=== PATIENT | female | born 1965 | race Caucasian/White ===

== ENCOUNTER 2017-04-01 14:46 | Inpatient (IN) | payer MEDICAID, OTHER ==
[~2017-04-01] VITALS: Ht 152.4 cm; Wt 80.0 kg
[2017-04-01] MEDS ORDERED: SOD CHLORIDE 0.9% 1,000 ML IV STA (17:31)
--- NOTE | 2017-04-01 17:55 | ERA ---
ER Documentation Chief Complaint Date/Time DATE: 04/01/17 TIME: 17:53 Chief Complaint sent by pmd for hemoglobin 5.1 03/14/17 HPI This is a 52-year-old Mongolian-speaking female history of anemia who presents for anemia. gameplay programmer was used. The patient is a very poor historian. She describes several weeks of generalized malaise, total body pain. She states that she has irregular and heavy periods. Has never had a transfusion in the past. She does note some mild shortness of breath and chest discomfort with exertion. She was noted to have a low-grade fever at triage but denies any cough shortness of breath or dysuria urgency or frequency. ROS All systems reviewed and are negative except as per history of present illness. Medications Home Meds Reported Medications Loratadine* (Loratadine*) 10 Mg Tablet, 10 MG PO DAILY, #30 TAB 04/01/17 Omeprazole* (Omeprazole*) 40 Mg Capsule.dr, 40 MG PO BID, #30 CAP 04/01/17 Glipizide* (Glipizide*) 5 Mg Tablet, 5 MG PO AC BREAKFAST DINNER, TAB 04/01/17 Allergies Allergies: Coded Allergies: No Known Allergy (Unverified , 04/01/17) PMhx/Soc Medical and Surgical Hx: pt denies Medical Hx, pt denies Surgical Hx Hx Alcohol Use: No Hx Substance Use: No Hx Tobacco Use: No Smoking Status: Never smoker FmHx Family History: No diabetes Physical Exam Vitals Vital Signs Date Time Temp Pulse Resp B/P Pulse Ox O2 Delivery O2 Flow Rate FiO2 04/01/17 18:49 99.1 85 18 145/68 99 Room Air 04/01/17 18:10 82 16 151/66 100 Room Air 04/01/17 14:50 100.1 107 18 158/69 98 Physical Exam General: Well developed, well nourished, no acute distress, pallor Head: Normocephalic, atraumatic. Eyes: Pupils equally reactive, EOM intact ENT: Moist mucous membranes Neck: Supple, no lymphadenopathy Respiratory: Lungs clear bilaterally, no distress Cardiovascular: RRR, no murmurs, rubs, or gallops Abdominal: Soft, non-tender, non-distended, no peritoneal signs : Deferred MSK: No edema, no unilateral swelling, 5/5 strength Neurologic: Alert and oriented, moving all extremities, normal speech, no focal weakness, no cerebellar signs Skin: No rash Psych: Normal mood Result Diagram: 04/01/17 1800 04/01/17 1800 Results 24 hrs Laboratory Tests Test 04/01/17 18:00 White Blood Count 9.010^3/ul Red Blood Count 3.8310^6/ul Hemoglobin 5.8g/dl Hematocrit 23.0% Mean Corpuscular Volume 60.1fl Mean Corpuscular Hemoglobin 15.1pg Mean Corpuscular Hemoglobin Concent 25.2g/dl Red Cell Distribution Width 22.4% Platelet Count 24177^3/UL Mean Platelet Volume 9.8fl Neutrophils % % Segmented Neutrophils % (Manual) 74% Lymphocytes % % Lymphocytes % (Manual) 22% Monocytes % % Monocytes % (Manual) 4% Eosinophils % % Basophils % % Nucleated Red Blood Cells % 0.2/100WBC Neutrophils # 10^3/ul Absolute Lymphocytes (Manual) 1.910^3/ul Lymphocytes # 10^3/ul Monocytes # 10^3/ul Absolute Monocytes (Manual) 0.310^3/ul Eosinophils # 10^3/ul Basophils # 10^3/ul Nucleated Red Blood Cells # 10^3/ul Pathologist Review (Hematology) YES Smudge Cells % 7% Platelet Morphology Comment @See below Polychromasia 1+ Hypochromasia 3+ Poikilocytosis 3+ Anisocytosis 3+ Microcytosis 3+ Ovalocytes 1+ Prothrombin Time 13.5Sec Prothrombin Time Ratio 1.1 INR International Normalized Ratio 1.03 Activated Partial Thromboplast Time 25.7Sec Sodium Level 143mmol/L Potassium Level 3.7mmol/L Chloride Level 103mmol/L Carbon Dioxide Level 24mmol/L Anion Gap 20 Blood Urea Nitrogen 9mg/dl Creatinine 0.61mg/dl Glucose Level 139mg/dl Lactic Acid Level 1.7mmol/L Calcium Level 9.3mg/dl Total Bilirubin 0.2mg/dl Direct Bilirubin 0.00mg/dl Indirect Bilirubin 0.2mg/dl Aspartate Amino Transf (AST/SGOT) 40IU/L Alanine Aminotransferase (ALT/SGPT) 39IU/L Alkaline Phosphatase 103IU/L Troponin I < 0.012ng/ml Total Protein 8.4g/dl Albumin 4.7g/dl Globulin 3.70g/dl Albumin/Globulin Ratio 1.27 Current Medications Medications (Trade) Dose Ordered Sig/Francie Route PRN Reason Start Time Stop Time Status Last Admin Dose Admin Acetaminophen 650 mg 650 mg ONCE ONCE PO 04/01/17 18:00 04/01/17 18:01 DC 04/01/17 18:08 Sodium Chloride 1,000 ml @ 1,000 mls/hr Q1H STAT IV 04/01/17 17:31 04/01/17 18:30 DC 04/01/17 18:06 Sodium Chloride (NS) 250 ml @ 0 mls/hr Q0M ONCE IV 04/01/17 18:46 04/01/17 18:48 DC Ondansetron HCl (Zofran Inj) 4 mg BRIDGE ORDER PRN IV NAUSEA AND/OR VOMITING 04/01/17 19:00 04/02/17 18:59 Acetaminophen (Tylenol Tab) 650 mg ER BRIDGE PRN PO MILD PAIN/FEVER 04/01/17 19:00 04/02/17 18:59 Procedures/MDM EKG, MONITORS, & DIAGNOSTIC IMAGING: EKG: I reviewed and interpreted a 12-lead EKG. Rhythm: Normal sinus rhythm Ectopy: None Intervals: No abnormalities ST segments: No elevations or depressions T waves: No contiguous inversions Chest x-ray: I reviewed and interpreted a 1 view of the chest Mediastinum: No enlargement Cardiac silhouette: No cardiomegaly Airspace: Clear lung perea bilaterally without evidence of pneumothorax Bones: No evidence of fracture LAB INTERPRETATION: Negative troponin, anemia, no leukocytosis MEDICAL DECISION MAKING: The patient presents for evaluation of anemia. She has signs and symptoms consistent with symptomatic anemia. She has a low-grade fever that is nonspecific. Low clinical concern for ITP as the patient is well-appearing. Sepsis screening will be initiated but again the patient is well-appearing this may be nonspecific. The patient may benefit from a transfusion. I discussed with the patient and/or family the risks, benefits, alternatives of blood transfusion. This includes allergic reaction and infections including HIV and hepatitis. The patient and/or family were able to verbalize these risks , stated understanding. A document has been signed and placed in the chart. ER COURSE: Infectious workup has been unrevealing. The patient's temperature has normalized. Consider using error versus nonspecific low-grade fever. The patient has anemia that would benefit from transfusion. The patient was given 2 units of packed red blood cells and will be admitted for further management. I kept the patient and/or family informed of laboratory and diagnostic imaging results throughout the emergency room course. DISPOSITION PLAN: [facility] admission for symptomatic anemia CONSULTATION: Accepting care team and consultations: I discussed the current laboratory data, diagnostic imaging and emergency care provided. Admitting team: Dr. Be Admitting team indication: Insurance directed Departure Diagnosis: Primary Impression: Symptomatic anemia Additional Impression: Menorrhagia Qualified Code: N92.1 - Menorrhagia with irregular cycle Condition: Stable TAMARA GLEASON MD Apr 01, 2017 17:55
[2017-04-01] MEDS ORDERED: ACETAMINOPHEN 325 MG TAB PO ONE (18:00)
[2017-04-01 18:19] LABS: ABNORMAL IP MESSAGE 1; MEAN CORPUSCULAR HEMOGLOBIN 15.1 pg (29.0-33.0); MEAN CORPUSCULAR HGB CONC 25.2 g/dl (32.0-37.0); MEAN CORPUSCULAR VOLUME 60.1 fl (82.0-101.0); MEAN PLATELET VOLUME 9.8 fl (7.4-10.4); NUCLEATED RED BLOOD CELLS% 0.2 /100WBC (0.0-0.0); PLATELET COUNT 339 10^3/UL (140-415); RED BLOOD COUNT 3.83 10^6/ul (4.20-5.40); RED CELL DISTRIBUTION WIDTH 22.4 % (11.5-14.5)
[2017-04-01] MEDS ORDERED: OMEP40CA6 PO (18:27)
[2017-04-01] MEDS ORDERED: GLIP5TAB13 PO (18:27)
[2017-04-01] MEDS ORDERED: LORA10TA3 PO (18:28)
[2017-04-01 18:38] LABS: POSITIVE DIFF @See below
[2017-04-01 18:42] LABS: HEMOGLOBIN 5.8 g/dl (12.0-16.0)
[2017-04-01 18:44] LABS: INR 1.03; PROTIME 13.5 Sec (12.2-14.2); PT RATIO 1.1
[2017-04-01 18:45] LABS: PARTIAL THROMBOPLASTIN TIME 25.7 Sec (25.0-35.0)
[2017-04-01] MEDS ORDERED: SOD CHLORIDE 0.9% 250 ML IV ONE (18:46)
[2017-04-01 18:48] LABS: ALANINE AMINOTRANSFERASE 39 IU/L (13-69); ALBUMIN 4.7 g/dl (3.3-4.9); ALBUMIN/GLOBULIN RATIO 1.27; ALKALINE PHOSPHATASE 103 IU/L (42-121); ANION GAP 20 (8-16); ASPARTATE AMINO TRANSFERASE 40 IU/L (15-46); BILIRUBIN,INDIRECT 0.2 mg/dl (0-1.1); BILIRUBIN,TOTAL 0.2 mg/dl (0.2-1.3); BLOOD UREA NITROGEN 9 mg/dl (7-20); CALCIUM 9.3 mg/dl (8.4-10.2); CARBON DIOXIDE 24 mmol/L (21-31); CHLORIDE 103 mmol/L (97-110); CREATININE 0.61 mg/dl (0.44-1.00); GLUCOSE 139 mg/dl (70-220); POTASSIUM 3.7 mmol/L (3.5-5.1); SODIUM 143 mmol/L (135-144); TOTAL PROTEIN 8.4 g/dl (6.1-8.1)
[2017-04-01] MEDS ORDERED: ACETAMINOPHEN 325 MG TAB PO PRN ×2 (19:00→21:00)
[2017-04-01] MEDS ORDERED: ONDANSETRON 4 MG INJ IV PRN ×2 (19:00→21:00)
[2017-04-01 19:01] LABS: TROPONIN-I < 0.012 ng/ml (0.00-0.12)
--- NOTE | 2017-04-01 19:04 | RADRPT ---
PROCEDURE: XR Chest. CLINICAL INDICATION: Shortness of breath. TECHNIQUE: Single frontal chest x-ray. COMPARISON: None available FINDINGS: The cardiac silhouette is enlarged. There is mild congestion and interstitial prominence diffusely. No focal consolidation is seen. There is no evidence of effusion or pneumothorax. Osseous structur es are grossly intact. IMPRESSION: Prominent cardiac silhouette with mild congestion and diffusely prominent interstitial lung markings which may represent mild interstitial edema or atypical infection. RPTAT: JJ .Zhen Bravo MD, MD Date Time Electronically viewed and signed by .Zhen Bravo MD, MD on 04/01/2017 19:03 .A/
[2017-04-01 19:05] LABS: ANISOCYTOSIS 3+ (0-0); HYPOCHROMASIA 3+ (0-0); MICROCYTOSIS 3+ (0-0); MONOCYTES % (M) 4 % (0-11); OVALOCYTES 1+ (0-0); POIKILOCYTOSIS 3+ (0-0); POLYCHROMASIA 1+ (0-0)
[2017-04-01 19:09] LABS: PATH REVIEW? YES
--- NOTE | 2017-04-01 20:53 | HP ---
Date/Time of Note Date/Time of Note DATE: 04/01/17 TIME: 20:53 Assessment/Plan VTE Prophylaxis VTE Prophylaxis Intervention: SCD's Assessment/Plan Chief Complaint/Hosp Course This is a 52-year-old [facility]: #1 symptomatic anemia: Microcytic anemia, hemoglobin on presentation was 5.8. With an MCV of 60. Patient does have a previous history of possible ulcer/ gastritis. At the current time will order fecal occult blood to assess for any GI tract bleeding. As patient does report she has heavy periods will also order a vaginal ultrasound. Will proceed with further imaging if indicated. She was ordered 2 units of PRBCs in the ED. Will repeat a CBC after her second unit is finished. Consult OB/GI as indicated via study findings. Will check iron studies. #2 diabetes mellitus: We will check a hemoglobin A1c. Will put patient on insulin sliding scale, will need to verify home medications the patient #3 questionable history of ulcer/gastritis: At the current time will check a fecal occult blood for any GI tract bleeding. Consult GI if clinically indicated. #4 Abnormal chest x-ray: Appears to be an enlarged cardiac silhouette and possible interstitial markings. The current time patient does not appear to be in any respiratory distress or short of breath. Will check a BNP. Patient does not have an elevated white blood cell count or any fevers or any cough or other respiratory symptoms to suggest any sort of underlying infection at this time. We will continue to monitor. #5 DVT and GI prophylaxis: SCDs, Protonix Further treatment strategy will be implemented as per the clinical course Problems: HPI/ROS Admit Date/Time Admit Date/Time Hx of Present Illness Chief complaint: Low hemoglobin This is a 52-year-old Turkish speaking female who comes in at the direction of her primary doctor for a low hemoglobin. As per the ED documentation and during my examination there does appear to be some difference in the story. To the ED physician she describes several weeks of generalized malaise, total body pain. She states that she has irregular and heavy periods. Has never had a transfusion in the past. She does note some mild shortness of breath and chest discomfort with exertion. She was noted to have a low-grade fever at triage but denies any cough shortness of breath or dysuria urgency or frequency. Upon my examination the patient stated that she was told by her primary care doctor that her hemoglobin was low she was sent in. She denies any weakness or any body pains or any chest pain or any shortness of breath. She states that she has heavy periods but they are regular. She denies any painful cramping or severe abdominal pain with her periods. She reports that her last period was March 11. Allergies: NKDA Medications: See BRIDGETT SASHA Const: As per HPI Eyes : No pain discharge or redness or change in visual acuity ENT: No pain, sore throat, congestion, congestion, dysphagia or discharge Respiratory: No shortness of breath, cough, sputum, wheezing, or pleuritic pain Cardiovascular: No chest pain, palpitation, PND, or edema GI : no change in appetite, abdominal pain, nausea, vomiting, diarrhea, constipation, or change in the color his stool Genitourinary: As per HPI Musculoskeletal: No joint pain, back pain, neck pain, restricted range of motion in neck or joints Skin: No rash, bruising or hives Neuro: No headache, dizziness, syncope, seizure, focal weakness Endocrine: No polyuria, polydipsia, temperature intolerance Psych: No hallucination, depression, anxiety or suicidal ideation PMH/Family/Social Past Medical History Diabetes mellitus, ulcer/gastritis ? Past Surgical History Endoscopy 1 year ago which found ulcers versus gastritis? Family History Significant Family History: hypertension (Mom) Social History Alcohol Use: none Smoking Status: Never smoker Drug Use: none Exam/Review of Systems Vital Signs Vitals Vital Signs Date Time Temp Pulse Resp B/P Pulse Ox O2 Delivery O2 Flow Rate FiO2 04/01/17 18:49 99.1 85 18 145/68 99 Room Air Exam Exam General: Patient is well-developed well-nourished The patient is alert oriented -3 lying comfortably in bed. HEENT: Atraumatic, normocephalic. The pupils are equal, round and reactive. Extraocular motor are intact Neck: Supple with full range of motion. No rigidity or meningismus Chest: Nontender Lungs: Clear to auscultation bilaterally no crackles rales or wheezing Heart: Normal S1-S2, Regular rhythm and rate. No murmur, S3, or S4 Abdomen: Soft , nontender, nondistended , bowel sounds are present. No guarding no rebound tenderness , No masses or organomegaly. No costovertebral temporal angle mass Extremities: Normal to inspection, no edema no cyanosis Neurologic: Normal mental status, speech normal, cranial nerves II through XII are intact, motor and sensory are intact, no focal weakness Additional Comments PROCEDURE: XR Chest. CLINICAL INDICATION: Shortness of breath. TECHNIQUE: Single frontal chest x-ray. COMPARISON: None available FINDINGS: The cardiac silhouette is enlarged. There is mild congestion and interstitial prominence diffusely. No focal consolidation is seen. There is no evidence of effusion or pneumothorax. Osseous structures are grossly intact. IMPRESSION: Prominent cardiac silhouette with mild congestion and diffusely prominent interstitial lung markings which may represent mild interstitial edema or atypical infection. RPTAT: JJ .Zhen Bravo MD, MD Date Time Electronically viewed and signed by .Zhen Bravo MD, MD on 04/01/2017 19:03 EKG Rhythm: Normal sinus rhythm Ectopy: None Intervals: No abnormalities ST segments: No elevations or depressions T waves: No contiguous inversions As per ED physician documentation Labs Result Diagram: 04/01/17 1800 04/01/17 1800 BRITTNEY HINDS Apr 01, 2017 20:53
[2017-04-01 21:00] VITALS: BP 154/68; RESP 19
[2017-04-01] MEDS ORDERED: NACL 0.9% 3 ML SYG IV SCH (21:00)
[2017-04-01] MEDS ORDERED: HYDROCODONE/APAP (5/325) TAB PO PRN (21:00)
[2017-04-01 21:30] VITALS: PULSE 80; TEMP 98.5
--- NOTE | 2017-04-01 22:37 | RADRPT ---
PROCEDURE: US Non-OB Pelvis. CLINICAL INDICATION: Menorrhagia. TECHNIQUE: Multiple sonographic images of the pelvis were obtained utilizing a transabdominal tech nique. The images were reviewed on a PACS workstation. COMPARISON: None. FINDINGS: The uterus is visualized and measures 9.4 x 5.7 x 9.7 cm. There is a submucosal fibroid measuring 4. 1 cm. Two pedunculated fibroids measure 9.2 and 4.7 cm. The endometrial echo complex is normal and measures 14 mm. The right ovary measures 8.4 x 5.8 x 6.1 cm. There is possible 6.1 cm right ovarian cyst with echoge antonio contents. An additional 2.5 cm echogenic structure adjacent to the right ovary demonstrates pos terior acoustic enhancement. The left ovary measures 3.1 x 1.8 x 2.0 cm. Blood flow is demonstrated to both ovaries. No adnexal masses are noted. There is no evidence of free fluid. IMPRESSION: 1. Three submucosal and pedunculated uterine fibroids measuring up to 9.2 cm. 2. Enlarged right ovary containing a possible 6.1 cm cyst with echogenic contents. This is nonspec ific but might represent a hemorrhagic cyst or endometrioma. A 2.5 cm echogenic structure adjacent t o the right ovary demonstrate posterior acoustic enhancement, suggestive of an additional hemorrhagi c cyst or endometrioma. A repeat ultrasound should be obtained in 6-12 weeks to reassess these findi ngs. Alternatively, these findings could be further evaluated with contrast-enhanced MRI. RPTAT: HTAR .Dakotah Mendez MD, Date Time Electronically viewed and signed by .Dakotah Mendez MD, MD on 04/01/2017 22:37 .R/
[2017-04-01 23:00] VITALS: Ht 152.4 cm; Wt 80.0 kg
[2017-04-02 02:00] VITALS: BP 117/55; RESP 18
[2017-04-02] MEDS ORDERED: DEXTROSE 50% 50 ML SYRINGE IV PRN ×2 (03:00)
[2017-04-02] MEDS ORDERED: GLUCOSE GEL 15 GRAM TUBE BUCCAL PRN (03:00)
[2017-04-02] MEDS ORDERED: GLUCOSE GEL 15 GRAM TUBE PO PRN ×2 (03:00)
[2017-04-02] MEDS ORDERED: GLUCAGON 1 MG INJ IM PRN (03:00)
[2017-04-02] MEDS ORDERED: PANTOPRAZOLE 40 MG INJ IV SCH (06:00)
[2017-04-02 06:26] LABS: IRON 24 ug/dl (35-150)
[2017-04-02 06:36] LABS: TOTAL IRON BINDING CAPACITY 384 ug/dl (241-421)
[2017-04-02 06:41] LABS: ADD UMIC YES; UR ASCORBIC ACID NEGATIVE (NEGATIVE); UR BACTERIA FEW /HPF (NONE SEEN); UR BILIRUBIN (Dip) NEGATIVE (NEGATIVE); UR BLOOD (Dip) 1+ mg/dL (NEGATIVE); UR CLARITY CLEAR (CLEAR); UR COLOR STRAW (YELLOW); UR GLUCOSE (Dip) NEGATIVE (NEGATIVE); UR KETONES (Dip) NEGATIVE (NEGATIVE); UR LEUKOCYTE ESTERASE (Dip) NEGATIVE Leu/ul (NEGATIVE); UR NITRITE (Dip) NEGATIVE (NEGATIVE); UR RBC 0 /HPF (0-5); UR SPECIFIC GRAVITY (Dip) 1.015 (1.003-1.030); UR SQUAMOUS EPITHELIAL CELL FEW /HPF (FEW); UR TOTAL PROTEIN (Dip) NEGATIVE (NEGATIVE); UR UROBILINOGEN (Dip) NEGATIVE (NEGATIVE)
[2017-04-02 06:56] LABS: CHOL/HDL RATIO 5.7 RATIO
[2017-04-02 07:27] LABS: THYROID STIMULATING HORMONE 6.12 MIU/L (0.465-4.680)
[2017-04-02 07:30] VITALS: BP 130/62; RESP 18
[2017-04-02 07:35] LABS: ABNORMAL IP MESSAGE 1; BASOPHILS % 0.5 % (0.0-2.0); EOSINOPHILS # 0.2 10^3/ul (0.0-0.5); EOSINOPHILS % 2.3 % (0.0-7.0); HEMATOCRIT 30.1 % (37.0-47.0); HEMOGLOBIN 8.5 g/dl (12.0-16.0); MEAN CORPUSCULAR HEMOGLOBIN 19.1 pg (29.0-33.0); MEAN CORPUSCULAR HGB CONC 28.2 g/dl (32.0-37.0); MEAN CORPUSCULAR VOLUME 67.6 fl (82.0-101.0); MEAN PLATELET VOLUME 9.3 fl (7.4-10.4); MONOCYTE # 0.7 10^3/ul (0.3-0.9); MONOCYTES % 8.9 % (0.0-11.0); NEUTROPHIL # 4.4 10^3/ul (1.6-7.5); NEUTROPHILS % 60.9 % (39.0-77.0); PLATELET COUNT 264 10^3/UL (140-415); RED BLOOD COUNT 4.45 10^6/ul (4.20-5.40); RED CELL DISTRIBUTION WIDTH 28.8 % (11.5-14.5); WHITE BLOOD COUNT 7.3 10^3/ul (4.8-10.8)
[2017-04-02 07:37] LABS: POSITIVE DIFF @See below
[2017-04-02] MEDS: INSULIN ASPART [NOVOLOG] 3 ML PEN SC SCH ×2 (08:00→12:00)
[2017-04-02] MEDS ORDERED: LORATADINE 10 MG TAB PO SCH (09:00)
[2017-04-02 14:00] VITALS: BP 143/84; RESP 20
--- NOTE | 2017-04-02 14:27 | PN ---
Date/Time of Note Date/Time of Note DATE: 04/02/17 TIME: 14:23 Assessment/Plan VTE Prophylaxis VTE Prophylaxis Intervention: SCD's Lines/Catheters IV [facility] [facility] Urinary Cath still in place: No Assessment/Plan Assessment/Plan 1. Symptomatic iron deficiency s/p two units PRBCs, oral iron supplement follow up with pelvic ultrasound Exam/Review of Systems Vital Signs Vitals Vital Signs Date Time Temp Pulse Resp B/P Pulse Ox O2 Delivery O2 Flow Rate FiO2 04/02/17 07:30 98.0 76 18 130/62 99 04/01/17 21:30 Room Air Intake and Output 04/01/17 04/01/17 04/02/17 15:00 23:00 07:00 Intake Total 600 ml 1070 ml Balance 600 ml 1070 ml Results Result Diagram: 04/02/17 0715 04/01/17 1800 Results 24 hrs Laboratory Tests Test 04/01/17 18:00 04/01/17 20:15 04/01/17 21:00 04/01/17 22:00 White Blood Count 9.0 Red Blood Count 3.83 L Hemoglobin 5.8 *L Hematocrit 23.0 L Mean Corpuscular Volume 60.1 L Mean Corpuscular Hemoglobin 15.1 L Mean Corpuscular Hemoglobin Concent 25.2 L Red Cell Distribution Width 22.4 H Platelet Count 339 Mean Platelet Volume 9.8 Neutrophils % Segmented Neutrophils % (Manual) 74 Lymphocytes % Lymphocytes % (Manual) 22 Monocytes % Monocytes % (Manual) 4 Eosinophils % Basophils % Nucleated Red Blood Cells % 0.2 H Neutrophils # Absolute Lymphocytes (Manual) 1.9 Lymphocytes # Monocytes # Absolute Monocytes (Manual) 0.3 Eosinophils # Basophils # Nucleated Red Blood Cells # Pathologist Review (Hematology) YES Smudge Cells % 7 H Platelet Morphology Comment @See below Polychromasia 1+ Hypochromasia 3+ Poikilocytosis 3+ Anisocytosis 3+ Microcytosis 3+ Ovalocytes 1+ Prothrombin Time 13.5 Prothrombin Time Ratio 1.1 INR International Normalized Ratio 1.03 Activated Partial Thromboplast Time 25.7 Sodium Level 143 Potassium Level 3.7 Chloride Level 103 Carbon Dioxide Level 24 Anion Gap 20 H Blood Urea Nitrogen 9 Creatinine 0.61 Glucose Level 139 Lactic Acid Level 1.7 1.8 1.0 Calcium Level 9.3 Total Bilirubin 0.2 Direct Bilirubin 0.00 Indirect Bilirubin 0.2 Aspartate Amino Transf (AST/SGOT) 40 Alanine Aminotransferase (ALT/SGPT) 39 Alkaline Phosphatase 103 Troponin I < 0.012 Total Protein 8.4 H Albumin 4.7 Globulin 3.70 H Albumin/Globulin Ratio 1.27 Beta HCG, Quantitative < 2.4 Test 04/01/17 23:23 04/02/17 05:33 04/02/17 05:35 04/02/17 06:00 Bedside Glucose 132 Hemoglobin A1c 5.4 B-Type Natriuretic Peptide 141 H Triglycerides Level 122 Cholesterol Level 121 LDL Cholesterol, Calculated 76 HDL Cholesterol 21 L Cholesterol/HDL Ratio 5.7 Thyroid Stimulating Hormone (TSH) 6.120 H Iron Level 24 L Total Iron Binding Capacity 384 Percent Iron Saturation 6 L Urine Color STRAW Urine Clarity CLEAR Urine pH 7.0 Urine Specific [place] 1.015 Urine Ketones NEGATIVE Urine Nitrite NEGATIVE Urine Bilirubin NEGATIVE Urine Urobilinogen NEGATIVE Urine Leukocyte Esterase NEGATIVE Urine Microscopic RBC 0 Urine Microscopic WBC 0 Urine Squamous Epithelial Cells FEW Urine Bacteria FEW A Urine Hemoglobin 1+ H Urine Glucose NEGATIVE Urine Total Protein NEGATIVE Test 04/02/17 06:30 04/02/17 06:56 04/02/17 07:15 04/02/17 08:04 Stool Occult Blood NEGATIVE Lab Scanned Report BLOOD TRANSFUSION White Blood Count 7.3 Red Blood Count 4.45 Hemoglobin 8.5 #L Hematocrit 30.1 #L Mean Corpuscular Volume 67.6 L Mean Corpuscular Hemoglobin 19.1 #L Mean Corpuscular Hemoglobin Concent 28.2 L Red Cell Distribution Width 28.8 #H Platelet Count 264 # Mean Platelet Volume 9.3 Neutrophils % 60.9 Lymphocytes % 27.0 Monocytes % 8.9 Eosinophils % 2.3 Basophils % 0.5 Nucleated Red Blood Cells % 0.0 Neutrophils # 4.4 Lymphocytes # 2.0 Monocytes # 0.7 Eosinophils # 0.2 Basophils # 0.0 Nucleated Red Blood Cells # 0.0 Bedside Glucose 116 Test 04/02/17 11:39 Bedside Glucose 126 Medications Medications Current Medications Ondansetron HCl (Zofran Inj) 4 mg Q6H PRN IV NAUSEA AND/OR VOMITING; Start at 21:00 Acetaminophen (Tylenol Tab) 650 mg Q6H PRN PO PAIN LEVEL 1-3 OR FEVER; Start at 21:00 Acetaminophen/ Hydrocodone Bitart ([place] (5/325)) 1 tab Q6H PRN PO MODERATE PAIN LEVEL 4-6; Start 04/01/17 at 21:00 Pantoprazole (Protonix Iv) 40 mg DAILY@06 IV Last administered on 04/02/17 06: 37; Admin Dose 40 MG; Start 04/02/17 at 06:00 Loratadine (Claritin) 10 mg DAILY PO Last administered on 04/02/17 11:41; Admin Dose 10 MG; Start 04/02/17 at 09:00 Diagnostic Test (Pha) (Accu-Chek) 1 ea 02 XX ; Start 04/03/17 at 02:00 Miscellaneous Information 1 ea NOTE XX ; Start 04/02/17 at 03:00 Glucose (Glutose) 15 gm Q15M PRN PO DECREASED GLUCOSE; Start 04/02/17 at 03:00 Glucose (Glutose) 22.5 gm Q15M PRN PO DECREASED GLUCOSE; Start 04/02/17 at 03: 00 Dextrose (D50w Syringe) 25 ml Q15M PRN IV DECREASED GLUCOSE; Start 04/02/17 at 03:00 Dextrose (D50w Syringe) 50 ml Q15M PRN IV DECREASED GLUCOSE; Start 04/02/17 at 03:00 Glucagon (Glucagen) 1 mg Q15M PRN IM DECREASED GLUCOSE; Start 04/02/17 at 03:00 Glucose (Glutose) 15 gm Q15M PRN BUCCAL DECREASED GLUCOSE; Start 04/02/17 at 03 :00 NAPOLEON MARTEL MD Apr 02, 2017 14:27
--- NOTE | 2017-04-02 15:33 | RADRPT ---
PROCEDURE: MR Pelvis with and without contrast. CLINICAL INDICATION: Abnormal pelvic ultrasound. TECHNIQUE: MRI of the pelvis was performed with and without contrast on a 3T GE scanner using the following sequences: Coronal and axial T2 forced recovery fast spin echo with and without fat satur ation, axial DWI, and pre- and post-contrast multi-planar LAVA sequences following the intravenous a dministration of 10 cc of Magnevist. COMPARISON: Ultrasound, 04/01/2017. FINDINGS: There is enlarged leiomyomatous uterus measuring approximately 17.7 cm in craniocaudal length. Ther e are multiple uterine fibroids. Largest fibroid is a subserosal fibroid arising from the uterine f undus measuring approximately 8.2 x 9.1 x 8.1 cm (AP x TR x CC). There is also an additional right subserosal fundal fibroid measuring approximately 6.1 x 5.3 cm. There are at least 2 submucosal fib roids identified, the larger measuring up to 3.5 cm. There is marked distortion of the endometrial cavity by the overlying fibroids. There is no intracavitary or cervical fibroid. Multiple Nabothia n cysts are noted within the cervix. There are simple appearing bilateral ovarian cysts, largest on the right measuring up to 3.7 cm. La rgest on the left measuring up to 3.8 cm. There is small free fluid in the pelvis, which may be physiologic. IMPRESSION: 1. Enlarged leiomyomatous uterus with multiple uterine fibroids, as described. 2. Simple appearing cysts in the bilateral adnexa. RPTAT: EE .Emil Matthew MD, MD Date Time Electronically viewed and signed by .Emil Matthew MD, MD on 04/02/2017 15:38 .C/
[2017-04-02] MEDS ORDERED: FER325 PO (16:29)
--- NOTE | 2017-04-02 16:44 | DS ---
Date/Time of Note Date/Time of Note DATE: 04/02/17 TIME: 16:33 Discharge Summary Admission/Discharge Info Admit Date/Time Apr 01, 2017 at 18:53 Discharge Date/Time Discharge Diagnosis 1. Iron deficiency anemia, consider abnormal vaginal bleeding, s/p two units PRBC, follow up with PCP/[facility] outpatient Patient Condition: Stable Hospital Course 52 years old female with no significant PMH was sent to hospital for severe anemia with dyspnea on exertion. H/H were 5.8/23 with MCV 60.1. Iron 24 with Fe saturation 5%. Patient got two units PRBC transfusion, that improves her H/H to 8.5/30.1. For etiology of iron deficiency anemia work ups, Stool occult blood is negative. Patient states she still has regular menses once a month, 3-5 days, sometime heavy, sometime light. The abnormal vaginal bleeding is considered. Patient had MRI of pelvis that revealed Enlarged leiomyomatous uterus with multiple uterine fibroids. Patient will be discharged with oral iron supplement and have her follow up with PCP to refer her to an [facility] outpatient. Patient denies abdominal pain, no black or dark stool. Stool OB is negative. PROCEDURE: MR Pelvis with and without contrast. CLINICAL INDICATION: Abnormal pelvic ultrasound. TECHNIQUE: MRI of the pelvis was performed with and without contrast on a 3T GE scanner using the following sequences: Coronal and axial T2 forced recovery fast spin echo with and without fat saturation, axial DWI, and pre- and post- contrast multi-planar LAVA sequences following the intravenous administration of 10 cc of Magnevist. COMPARISON: Ultrasound, 04/01/2017. FINDINGS: There is enlarged leiomyomatous uterus measuring approximately 17.7 cm in craniocaudal length. There are multiple uterine fibroids. Largest fibroid is a subserosal fibroid arising from the uterine fundus measuring approximately 8.2 x 9.1 x 8.1 cm (AP x TR x CC). There is also an additional right subserosal fundal fibroid measuring approximately 6.1 x 5.3 cm. There are at least 2 submucosal fibroids identified, the larger measuring up to 3.5 cm. There is marked distortion of the endometrial cavity by the overlying fibroids. There is no intracavitary or cervical fibroid. Multiple Nabothian cysts are noted within the cervix. There are simple appearing bilateral ovarian cysts, largest on the right measuring up to 3.7 cm. Largest on the left measuring up to 3.8 cm. There is small free fluid in the pelvis, which may be physiologic. IMPRESSION: 1. Enlarged leiomyomatous uterus with multiple uterine fibroids, as described. 2. Simple appearing cysts in the bilateral adnexa. RPTAT: EE .Emil Matthew MD, Date Time Electronically viewed and signed by .Emil Matthew MD, on 04/02/2017 15:38 .C/ CC: BRITTNEY HINDS Home Meds Active Scripts Ferrous Sulfate* (Ferrous Sulfate*) 325 Mg Tabec, 325 MG PO BID for 30 Days, TAB Prov:NAPOLEON MARTEL MD 04/02/17 Reported Medications Loratadine* (Loratadine*) 10 Mg Tablet, 10 MG PO DAILY, #30 TAB 04/01/17 Discontinued Reported Medications Omeprazole* (Omeprazole*) 40 Mg Capsule.dr, 40 MG PO BID, #30 CAP 04/01/17 Glipizide* (Glipizide*) 5 Mg Tablet, 5 MG PO AC BREAKFAST DINNER, TAB 04/01/17 Follow-up Plan PCP in one week Primary Care Provider Care Physician No Primary Pending Labs Laboratory Tests Test 04/01/17 18:00 04/01/17 20:15 04/01/17 21:00 04/01/17 22:00 White Blood Count 9.010^3/ul (4.8-10.8) Red Blood Count 3.8310^6/ul (4.20-5.40) Hemoglobin 5.8g/dl (12.0-16.0) Hematocrit 23.0% (37.0-47.0) Mean Corpuscular Volume 60.1fl (82.0-101.0) Mean Corpuscular Hemoglobin 15.1pg (29.0-33.0) Mean Corpuscular Hemoglobin Concent 25.2g/dl (32.0-37.0) Red Cell Distribution Width 22.4% (11.5-14.5) Platelet Count 64479^3/UL (140-415) Mean Platelet Volume 9.8fl (7.4-10.4) Neutrophils % % (39.0-77.0) Segmented Neutrophils % (Manual) 74% (39-77) Lymphocytes % % (15.0-51.0) Lymphocytes % (Manual) 22% (15-51) Monocytes % % (0.0-11.0) Monocytes % (Manual) 4% (0-11) Eosinophils % % (0.0-7.0) Basophils % % (0.0-2.0) Nucleated Red Blood Cells % 0.2/100WBC (0.0-0.0) Neutrophils # 10^3/ul (1.6-7.5) Absolute Lymphocytes (Manual) 1.910^3/ul (0.8-2.9) Lymphocytes # 10^3/ul (0.8-2.9) Monocytes # 10^3/ul (0.3-0.9) Absolute Monocytes (Manual) 0.310^3/ul (0.3-0.9) Eosinophils # 10^3/ul (0.0-0.5) Basophils # 10^3/ul (0.0-0.1) Nucleated Red Blood Cells # 10^3/ul (0.0-0.0) Pathologist Review (Hematology) YES Smudge Cells % 7% (0-0) Platelet Morphology Comment @See below Polychromasia 1+ (0-0) Hypochromasia 3+ (0-0) Poikilocytosis 3+ (0-0) Anisocytosis 3+ (0-0) Microcytosis 3+ (0-0) Ovalocytes 1+ (0-0) Prothrombin Time 13.5Sec (12.2-14.2) Prothrombin Time Ratio 1.1 INR International Normalized Ratio 1.03 Activated Partial Thromboplast Time 25.7Sec (25.0-35.0) Sodium Level 143mmol/L (135-144) Potassium Level 3.7mmol/L (3.5-5.1) Chloride Level 103mmol/L (97-110) Carbon Dioxide Level 24mmol/L (21-31) Anion Gap 20 (8-16) Blood Urea Nitrogen 9mg/dl (7-20) Creatinine 0.61mg/dl (0.44-1.00) Glucose Level 139mg/dl (70-220) Lactic Acid Level 1.7mmol/L (0.5-2.0) 1.8mmol/L (0.5-2.0) 1.0mmol/L (0.5-2.0) Calcium Level 9.3mg/dl (8.4-10.2) Total Bilirubin 0.2mg/dl (0.2-1.3) Direct Bilirubin 0.00mg/dl (0.00-0.20) Indirect Bilirubin 0.2mg/dl (0-1.1) Aspartate Amino Transf (AST/SGOT) 40IU/L (15-46) Alanine Aminotransferase (ALT/SGPT) 39IU/L (13-69) Alkaline Phosphatase 103IU/L (42-121) Troponin I < 0.012ng/ml (0.00-0.12) Total Protein 8.4g/dl (6.1-8.1) Albumin 4.7g/dl (3.3-4.9) Globulin 3.70g/dl (1.3-3.2) Albumin/Globulin Ratio 1.27 Beta HCG, Quantitative < 2.4mIU/ml Test 04/01/17 23:23 04/02/17 05:33 04/02/17 05:35 04/02/17 06:00 Bedside Glucose 132mg/dL (70-220) Hemoglobin A1c 5.4% (0-5.9) B-Type Natriuretic Peptide 141PG/ML (0-125) Triglycerides Level 122mg/dl (0-149) Cholesterol Level 121mg/dl (100-200) LDL Cholesterol, Calculated 76mg/dl HDL Cholesterol 21mg/dl (37-92) Cholesterol/HDL Ratio 5.7RATIO Thyroid Stimulating Hormone (TSH) 6.120MIU/L (0.465-4.680) Iron Level 24ug/dl (35-150) Total Iron Binding Capacity 384ug/dl (241-421) Percent Iron Saturation 6% SAT (22-52) Urine Color STRAW (YELLOW) Urine Clarity CLEAR (CLEAR) Urine pH 7.0 (5.0-9.0) Urine Specific [place] 1.015 (1.003-1.030) Urine Ketones NEGATIVEmg/dL (NEGATIVE) Urine Nitrite NEGATIVEmg/dL (NEGATIVE) Urine Bilirubin NEGATIVEmg/dL (NEGATIVE) Urine Urobilinogen NEGATIVEmg/dL (NEGATIVE) Urine Leukocyte Esterase NEGATIVELeu/ul (NEGATIVE) Urine Microscopic RBC 0/HPF (0-5) Urine Microscopic WBC 0/HPF (0-5) Urine Squamous Epithelial Cells FEW/HPF (FEW) Urine Bacteria FEW/HPF (NONE SEEN) Urine Hemoglobin 1+mg/dL (NEGATIVE) Urine Glucose NEGATIVEmg/dL (NEGATIVE) Urine Total Protein NEGATIVEmg/dl (NEGATIVE) Test 04/02/17 06:30 04/02/17 06:56 04/02/17 07:15 04/02/17 08:04 Stool Occult Blood NEGATIVE (NEGATIVE) Lab Scanned Report BLOOD [id number] White Blood Count 7.310^3/ul (4.8-10.8) Red Blood Count 4.4510^6/ul (4.20-5.40) Hemoglobin 8.5g/dl (12.0-16.0) Hematocrit 30.1% (37.0-47.0) Mean Corpuscular Volume 67.6fl (82.0-101.0) Mean Corpuscular Hemoglobin 19.1pg (29.0-33.0) Mean Corpuscular Hemoglobin Concent 28.2g/dl (32.0-37.0) Red Cell Distribution Width 28.8% (11.5-14.5) Platelet Count 48551^3/UL (140-415) Mean Platelet Volume 9.3fl (7.4-10.4) Neutrophils % 60.9% (39.0-77.0) Lymphocytes % 27.0% (15.0-51.0) Monocytes % 8.9% (0.0-11.0) Eosinophils % 2.3% (0.0-7.0) Basophils % 0.5% (0.0-2.0) Nucleated Red Blood Cells % 0.0/100WBC (0.0-0.0) Neutrophils # 4.410^3/ul (1.6-7.5) Lymphocytes # 2.010^3/ul (0.8-2.9) Monocytes # 0.710^3/ul (0.3-0.9) Eosinophils # 0.210^3/ul (0.0-0.5) Basophils # 0.010^3/ul (0.0-0.1) Nucleated Red Blood Cells # 0.010^3/ul (0.0-0.0) Bedside Glucose 116mg/dL (70-220) Test 04/02/17 11:39 Bedside Glucose 126mg/dL (70-220) NAPOLEON MARTEL MD Apr 02, 2017 16:44
[2017-04-03] MEDS ORDERED: ACCU-CHEK XX SCH ×2 (02:00)
== END 2017-04-02 19:06 | disposition home or self-care (01) | DRG 812 ==
LOC: E/R 14:46 → PP2 18:53 → E/R 22:46
PROVIDERS: ADMIT Internal Medicine; ATTEND Internal Medicine
PROC: 30233N1 Transfusion of Nonautologous Red Blood Cells into Peripheral Vein, Percutaneous Approach (ICD-10-PCS; principal; 2017-04-01)
DX: D50.9 Iron deficiency anemia, unspecified (principal); D39.0 Neoplasm of uncertain behavior of uterus; N92.0 Excessive and frequent menstruation with regular cycle; E11.9 Type 2 diabetes mellitus without complications
CPT/HCPCS: 36415; 36430; 71010; 72196; 76856; 80053; 80061; 81001; 82270; 82962; 83036; 83540; 83605; 83880; 84443; 84484; 84702; 85025; 85610; 85730; 86850; 86900; 86901; 86920; 87040; 87086; 93005; 96360; 96361; C9113; J1815; J7030; J7040; P9016